=== PATIENT | female | born 2000 | race Caucasian/White ===

== ENCOUNTER 2020-05-24 09:18 | Emergency (ER) | payer OTHER, BC ==
[~2020-05-24] VITALS: Ht 157.5 cm; Wt 60.0 kg
[2020-05-24] MEDS ORDERED: AMOX/K CLAV875 M1 PO (10:00)
[2020-05-24 11:35] VITALS: BP 121/74
== END 2020-05-24 11:35 | disposition home or self-care (01) | DRG 605 ==
LOC: ED 09:18
PROC: 0HQEXZZ Repair Left Lower Arm Skin, External Approach (ICD-10-PCS; principal; 2020-05-24)
DX: S51.852A Open bite of left forearm, initial encounter (principal); W54.0XXA Bitten by dog, initial encounter; Y92.89 Other specified places as the place of occurrence of the external cause; Y99.0 Civilian activity done for income or pay